=== PATIENT | male | born 1965 | race Caucasian/White ===

== ENCOUNTER 2020-10-14 19:57 | Inpatient (IN) | payer MEDICARE, SELFPAY ==
--- NOTE | ~2020-10-14 | XR_ITS ---
EXAMINATION: XR chest 2V DATE: 10/14/2020 21:00 INDICATION: Left chest pain. Shortness of breath. TECHNIQUE: Frontal and lateral views of the chest were obtained. COMPARISON: None. FINDINGS: There is mild atelectasis in left lower lung zone. No pleural effusion or pneumothorax. The heart size is normal. IMPRESSION: 1. Mild atelectasis in left lower lung zone. Reviewed, dictated and finalized at location A. BREAKER OPERATOR
[2020-10-14 20:02] VITALS: BP 132/79; PULSE 150; RESP 20; TEMP 37; O2SAT 100
--- NOTE | 2020-10-14 20:05 | ECG_ITS ---
Measurements Intervals [place] Rate: 144 P: ID: 0 QRS: 47 QRSD: 113 T: 40 QT: 332 QTc: 515 Interpretive Statements ATRIAL FLUTTER/TACHYCARDIA WITH RAPID VENTRICULAR RESPONSE MODERATE INTRAVENTRICULAR CONDUCTION DELAY MINIMAL Q WAVES- INFERIOR LEADS NONSPECIFIC T-WAVE ABNORMALITY- ANT/INF LEADS BASELINE WANDER- II, III, AVF ABNORMAL ECG Electronically Signed On 10-14-2020 20:18:10 COAT CHECKER by Moshe Sow D.O.
[2020-10-14 20:22] VITALS: BP 131/109; PULSE 122; RESP 22; TEMP 36.7; O2SAT 98
[2020-10-14 20:32] LABS: Basophils Percent Auto 0.2 % (0.2-1.2); Eosinophils Absolute Auto 0.2 K/mm3 (0-0.3); Eosinophils Percent Auto 2.3 % (0-4.4); Hematocrit 42.5 % (42.0-52.0); Hemoglobin 13.6 g/dL (14.0-18.0); Immature Granulocyte Absolute 0.04 K/mm3 (0.00-0.031); Immature Granulocyte Percent A 0.5 % (0-0.5); Lymphocytes Absolute Auto 1.94 K/mm3 (0.9-3.2); Mean Corpuscular Hemoglobin 28.8 pg (26-34); Mean Platelet Volume 9.6 fl (7.4-10.4); Monocytes Absolute Auto 0.8 K/mm3 (0.1-0.6); Monocytes Percent Auto 8.8 % (2.6-8.5); Neutrophils Absolute Auto 5.9 K/mm3 (1.3-6.7); Neutrophils Percent Auto 66.2 % (45.5-73.1); Platelet Count Result 313 k/mm3 (150-375); Red Blood Count 4.72 M/mm3 (4.6-6.20); Red Cell Distribution Width 13.2 % (11.5-14.5); White Blood Count 8.8 K/mm3 (4.5-10.0)
[2020-10-14] MEDS: ENOXAPARIN 120 MG/0.8 ML SYRINGE SUB-Q (20:34)
[2020-10-14] MEDS: LACTATED RINGERS 1,000 ML 999 ML IV CONT (20:34)
[2020-10-14] MEDS: dilTIAZem HCl INJ 25 MG/5 ML VIAL IV PUSH (20:34)
[2020-10-14 20:35] VITALS: PULSE 91; RESP 20; O2SAT 96
[2020-10-14 20:44] LABS: Anion Gap 7 mmol/L (8-16); Blood Urea Nitrogen 15 mg/dL (9-20); Calcium 9.2 mg/dL (8.4-10.2); Carbon Dioxide 30 mmol/L (22-30); Chloride 107 mmol/L (98-107); Estimated CRCL calculation 82 ml/min; Estimated Glomerular Filt Rate > 60; Glucose 115 mg/dL (75-110); Potassium 3.7 mmol/L (3.4-5.0); Sodium 144 mmol/L (137-145)
--- NOTE | 2020-10-14 20:45 | ED.SOB ---
HPI - SOB/Dyspnea General Chief Complaint: Shortness of Breath/Dyspnea Stated Complaint: sob, palpations Time Seen by Provider: 10/14/20 20:18 Source: patient Mode of arrival: ambulatory Limitations: no limitations History of Present Illness HPI Narrative: 55-year-old male Patient has been having palpitations for quite some time and has been seeing [facility] and [place] He is already had a pretty substantial work-up including Holter monitoring which showed him to be in atrial fibrillation or atrial flutter 12% of the time It looks like he was started on flecainide about 3 weeks ago 1 week ago he was noted to have a stable tachycardia with a rate of 150 and was begun on diltiazem 60 mg p.o. 3 times a day Effectively that seemed to have no effect according to the patient and he remained tachycardic Today along with the tachycardia he had some mild exertional dyspnea and opted to come over to the ER here to be checked when he could not reach his hand candle dipper over the phone He is not in acute distress and indeed appears to be in atrial flutter with a 145?heart rate Past medical history of note is hypothyroid and takes Synthroid MD elicited complaint: shortness of breath Related Data Allergies Allergy/AdvReac Type Severity Reaction Status Date / Time No Known Allergies Allergy Unverified 05/03/18 06:47 Review of Systems Review of Systems: All systems reviewed & are unremarkable except as noted in HPI and below Constitutional: Constitutional: Denies chills, Denies fatigue, Denies fever(s), Denies headache(s) and Reports weakness Eyes: Eyes: Reports no additional eye complaints and Denies change in vision ENT: Denies headache(s), Denies epistaxis, Denies nasal congestion and Denies sore throat Cardiovascular: Cardiovascular: Denies chest pain, Reports rapid heart rate, Denies leg edema, Denies palpitations and Denies dyspnea Respiratory: Respiratory: Denies cough, Reports dyspnea and Denies wheezing Gastrointestinal: Gastrointestinal: Denies abdominal pain, Denies diarrhea, Denies nausea and Denies vomiting Genitourinary: Genitourinary: Denies hematuria, Denies dysuria and Denies urinary frequency Musculoskeletal: Musculoskeletal: Denies deformity, Denies arthralgias, Denies joint swelling, Denies muscle weakness and Denies numbness Integumentary/Breasts: Skin/Breast: Denies rash and Denies wounds Neurologic: Denies headache(s), Denies focal weakness, Denies numbness and Denies weakness Psychiatric: Psychiatric: Reports no additional psychiatric complaints Endocrine: Endocrine: Denies fatigue and Denies palpitations Hematologic/Lymphatic: Hematologic/Lymphatic: Denies easy bleeding and Denies easy bruising Allergic/Immunologic: Allergic/Immunologic: Denies wheezing PMFSH Social History Social History Gender identity (if verbalized by the patient): Male Exam Const: General: no acute distress, well developed and awake Nutritional Appearance: well nourished and obese Orientation/consciousness: patient oriented x3 (alert) Limitations: no limitations HENMT: Head: normocephalic and atraumatic Ears: external ears normal General nose exam: No nasal discharge present and no epistaxis Face and sinus: face symmetric Eyes: Conjunctivae: conjunctivae normal Sclera: sclerae normal EOM: EOMs intact bilaterally Neck: Neck: normal visual inspection, supple and no JVD Chest: Chest palpation & inspection: deferred Resp: Effort & Inspection: normal respiratory effort Auscultation: clear to auscultation bilaterally, no rales, no rhonchi, no wheezes and other (BS =) Cardio: Rate: regular rate and tachycardic Rhythm: regular rhythm Heart sounds: no gallops and no murmurs GI: Inspection: normal to inspection GI Palp: Yes Soft to palpation and No Tenderness to palpation present (GI) : General: Yes no CVA tenderness Back/Spine/Pelvis: Back: no CVA tenderness Thoracic/Lumbar Spine: th
[2020-10-14 20:56] LABS: Troponin I < 0.012 ng/mL (0.000-0.034)
[2020-10-14] MEDS: dilTIAZem HCl INJ 25 MG/5 ML VIAL 35 MG IV PUSH (20:56)
[2020-10-14 21:10] VITALS: BP 135/101; PULSE 89
[2020-10-14] MEDS: FLECAINIDE ACETATE 100 MG TABLET PO (21:10)
[2020-10-14 22:18] LABS: Amphetamine Screen Urine Negative (Negative); Barbiturate Screen Urine Negative (Negative); Benzodiazepines Screen Urine Negative (Negative); Cannabinoid Screen Urine Negative (Negative); Cocaine Screen Urine Negative (Negative); Methadone Screen Urine Negative (Negative); Opiate Screen Urine Negative (Negative); Phencyclidine Screen Urine Negative (Negative)
[2020-10-14 22:45] LABS: Free T4 Free Thyroxine Reflex 1.27 ng/dL (0.78-2.19)
[2020-10-14 23:16] LABS: Troponin I < 0.012 ng/mL (0.000-0.034)
[2020-10-14 23:58] VITALS: BP 138/89; PULSE 89; RESP 18; O2SAT 98
[2020-10-15] VITALS (24 sets, daily range): BP systolic 102–149; BP diastolic 67–94; PULSE 104–148; RESP 16–20; TEMP 36.2–36.6; O2SAT 93–100; BMI 42.5
--- NOTE | 2020-10-15 00:17 | ADMGEN ---
This patient, Domo Quach, was admitted to IMU Room 202-. Patient/family oriented to hospital policies and general routines including ID bracelet, bed and alarms, visiting hours, pain management, procedures, bathroom and other care routines, personal items, smoking policy, room service/diet, and visiting hours. Information on how to activate the Rapid Response Team has been discussed. Patient/Family are encouraged to report perceived risks to care and to ask questions if they do not understand what they are told or what they should do.
[2020-10-15 00:18] LABS: Total Triiodothyronine (T3) 1.66 NG/ML (0.97-1.69)
--- NOTE | 2020-10-15 01:30 | PM.IMHP ---
H&P: HPI History of Present Illness Date/Time: 10/15/20 01:30 Chief Complaint: Palpitations. Narrative: This is a very pleasant 55-year-old male with paroxysmal atrial fibrillation, obstructive sleep apnea on CPAP, hyperlipidemia, hypothyroidism, and anxiety who presented to the emergency department earlier today via private vehicle from home with complaints of palpitations. He has had brief, intermittent fluttering episodes in his chest for many years and has worn Holter monitors on several occasions, most recently these episodes were captured and he was found to have paroxysmal atrial fibrillation and tachycardia. He has been seeing Dr. Irizarry with [facility] and was started on flecainide approximately 1 month ago which seemed to lessen the frequency of the palpitations. However last Monday evening simply while sitting down at home, he felt his heart racing and he has been experiencing a racing heart since that time. He was started on diltiazem last Monday but unfortunately that has not made any significant difference in his heart rate other than for about an hour or two after taking the pill. He has been trying to get a hold of the die grinder since that time to no avail and thus came in for evaluation today. EKG on arrival to the emergency department showed atrial flutter/tachycardia with rapid ventricular response with a rate of about 144 for which he was started on a Cardizem drip with some improvement in his rates into the 120s. He also has mild dyspnea with this but no other significant symptoms. Specifically he denies exertional chest pain, pleuritic pain, orthopnea, PND, and lower extremity edema. No nausea, vomiting, or sweats. He is compliant with his CPAP. He drinks decaffeinated beverages. No alcohol abuse. Review of Systems Review of Systems: Narrative: Twelve systems were reviewed with pertinent positives and negatives as per HPI. No syncope or near syncope. He denies fever, chills, and sweats. No recent cold or flu symptoms. No cough. The patient ambulates with a cane due to balance issues from idiopathic peripheral neuropathy. Except as documented, all other systems were reviewed and are negative. [facility] Past Medical History Medical History (Updated 10/15/20 @ 02:19 by Dixie Rod PA-C) Anxiety Depression Gastroesophageal reflux disease Hyperlipidemia Hypothyroidism Idiopathic peripheral neuropathy Irritable bowel syndrome Obstructive sleep apnea on CPAP Paroxysmal atrial fibrillation Surgical History Surgical History (Updated 10/15/20 @ 02:19 by Dixie Rod PA-C) History of arthroscopy of left knee History of left inguinal hernia repair History of tonsillectomy Family History Family History (Updated 10/15/20 @ 02:20 by Dixie Rod PA-C) Father Lung cancer Mother Hypertension Congestive heart failure Sibling Acute myocardial infarction Diabetes mellitus Sibling Chronic obstructive pulmonary disease Social History Social History (Updated 10/15/20 @ 02:20 by Dixie Rod PA-C) Social History: Surrogate decision maker: Opal Boateng, . Code status: Full code. Smoking status: Never smoker Second hand tobacco smoke exposure: No Alcohol intake: never Substance use: never Additional living arrangements comments: The patient lives with his in [place]. They have 2 children. Additional occupation/education comments: On disability. 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 Gender identity (if verbalized by the patient): Male Spiritual care concerns: No Meds Home Medications and Allergies Home Medications Medication Instructions Recorded Confirmed Type aspirin [Adult Low Dose Aspirin] 81 mg PO DAILY 10/15/20 10/15/20 History atorvastatin 40 mg PO DAILY 10/15/20 10/15/20 History buspirone 10 mg PO TID 10/15/20 10/15/20 History clonazepam 0.5 mg PO TID 10/15/20 10/15/20 History diltiazem HCl
--- NOTE | 2020-10-15 02:04 | PCRCNOTE ---
PT WEARS CPAP AT HOME. HE WAS OFFERED A HOSPITAL MACHINE BUT REFUSED STATING THAT HE WAS HOPING TO GO HOME TOMORROW. PT WAS GIVEN THE OPTION TO CALL AT ANYTIME SHOULD HE CHANGE HIS MIND OR TO BRING IN HIS OWN CPAP MACHINE AND/OR MASK SHOULD HE NEED TO STAY LONGER THAN EXPECTED.
[2020-10-15 02:37] LABS: Troponin I < 0.012 ng/mL (0.000-0.034)
[2020-10-15 05:16] LABS: Alanine Aminotransferase 14 U/L (4-50); Albumin Level 3.5 g/dL (3.5-5.1); Alkaline Phosphatase 54 U/L (38-126); Anion Gap 4 mmol/L (8-16); Aspartate Amino Transferase 18 U/L (17-59); Bilirubin,Total 0.3 mg/dL (0.2-1.3); Blood Urea Nitrogen 15 mg/dL (9-20); Calcium 8.3 mg/dL (8.4-10.2); Carbon Dioxide 34 mmol/L (22-30); Chloride 105 mmol/L (98-107); Cholesterol 96 mg/dL (0-200); Estimated CRCL calculation 81 ml/min; Estimated Glomerular Filt Rate > 60; Glucose 102 mg/dL (75-110); HDL Direct 27 mg/dL; Potassium 3.6 mmol/L (3.4-5.0); Sodium 143 mmol/L (137-145); Triglycerides 91 mg/dL (<150)
[2020-10-15 05:27] LABS: LDL Cholesterol Direct 55 mg/dL
[2020-10-15] MEDS: LEVOTHYROXINE SODIUM 150 MCG TABLET PO (06:01)
[2020-10-15] MEDS: ASPIRIN 81 MG CHEWABLE TABLET PO (07:54)
[2020-10-15] MEDS: MAGNESIUM OXIDE 400 MG TABLET PO ×2 (07:54→21:46)
[2020-10-15] MEDS: PANTOPRAZOLE 40 MG TABLET PO (07:54)
[2020-10-15] MEDS: ATORVASTATIN 40 MG TABLET PO (07:54)
[2020-10-15] MEDS: busPIRone HCL 10 MG TABLET PO ×3 (07:54→21:46)
[2020-10-15] MEDS: GABAPENTIN 300 MG CAPSULE PO ×3 (07:55→21:46)
[2020-10-15] MEDS: FLECAINIDE ACETATE 100 MG TABLET PO ×2 (07:55→22:02)
[2020-10-15] MEDS: clonazePAM (*CRX) 0.5 MG TABLET PO ×3 (07:55→21:46)
[2020-10-15] MEDS: ENOXAPARIN 120 MG/0.8 ML SYRINGE SUB-Q (07:55)
--- NOTE | 2020-10-15 13:22 | PM.IMPN ---
Progress Note: A&P Assessment and Plan (1) Atrial flutter with rapid ventricular response: Code(s): I48.92 - Unspecified atrial flutter Status: Acute Assessment and Plan: Patient still appears to be in a flutter with RVR. On therapeutic lovenox since arrival to ED. Still on diltiazem. Cardiology consulted and appreciate recommendations. Per nursing, patient may have DARIUSZ in am Continue diltizem for now Home flecainide continues Continue therapeutic Lovenox Monitor Await further recommendations from Cardiology (2) Paroxysmal atrial fibrillation: Code(s): I48.0 - Paroxysmal atrial fibrillation Status: Acute Assessment and Plan: Please see above a/p (3) Obstructive sleep apnea on CPAP: Code(s): G47.33 - Obstructive sleep apnea (adult) (pediatric); Z99.89 - Dependence on other enabling machines and devices Status: Acute Assessment and Plan: Will do CPAP tonight (4) Hyperlipidemia: Code(s): E78.5 - Hyperlipidemia, unspecified Status: Acute Assessment and Plan: Continue statin and fish oil (5) Hypothyroidism: Code(s): E03.9 - Hypothyroidism, unspecified Status: Acute Assessment and Plan: TSH low, with normal free T4, total T3 Continue home levothyroxine (6) Anxiety: Code(s): F41.9 - Anxiety disorder, unspecified Status: Acute Assessment and Plan: Escitalopram on hold given he is on flecained and has prolonged QTc interval Subjective Date/time seen: 10/15/20 13:22 Interval history: Patient is a 55 yo M with paroxysmal atrial fibrillation, obstructive sleep apnea on CPAP, hyperlipidemia, hypothyroidism, and anxiety who is seen in follow up for atrial flutter with RVR. Patient states he feels similar to what he has been the past week when symptoms started; still racing heart rate, occasional chest pressure, and WADE. He has no other complaints at the moment. Denies f/c/s, recent infections, headaches, dizziness, lightheadedness, changes in v/h, cough, n/v/d/c, abd pain, changes in BMs, dysuria, hematuria, cloudy urine, calf pain/swelling. Review of Systems Review of Systems: All systems reviewed & are unremarkable except as noted in HPI and below Exam Narrative: Exam Narrative: General: Patient initially sleeping on left side in bed in no acute distress. Easily arousable to verbal stimuli, sits up on side of bed with ease. Family in room at time of visit. HEENT: Normocephalic, EOMI, oral mucosa moist. Cardiovascular: tachycardic, s1-s2 noted, No notable murmur, rub, or gallop. Tele shows apparent a. flutter with RVR in 130s-140s at time of visit Respiratory: Lungs clear to auscultation all baez. Non-labored breathing. Abdomen: Soft, obese, non-tender, non-distended, bowel sounds present. Extremities: Peripheral pulses intact. No edema. NTTP b/l calves Neuro: No focal neurological deficits. Speech is clear. Objective Data Vital Signs Vital Signs: Last Vital Signs Temp 97.2 F L 10/15/20 12:00 Pulse 112 H 10/15/20 12:00 Resp 20 10/15/20 12:00 BP 109/67 10/15/20 12:00 Pulse Ox 97 10/15/20 12:00 Intake/Output Intake/Output: Intake & Output 10/12/20 10/13/20 10/14/20 10/15/20 23:59 23:59 23:59 23:59 Intake Total 1000 640 Balance 1000 640 Meds/Results Medications: Active Medications Generic Name Dose Route Start Last Admin Trade Name Freq PRN Reason Stop Dose Admin Acetaminophen 650 mg 10/14/20 21:10 Acetaminophen 325 Mg Tablet PO Q4H PRN Mild Pain (1-3) or Fever Aspirin 81 mg 10/15/20 08:00 10/15/20 07:54 Aspirin 81 Mg Chewable Tablet PO 81 mg DAILY@0800 EDU Administration Atorvastatin Calcium 40 mg 10/15/20 09:00 10/15/20 07:54 Atorvastatin 40
[2020-10-15] MEDS: OMEGA 3 POLYUNSAT FATTY ACIDS 1 GM CAP PO (13:26)
--- NOTE | 2020-10-15 15:48 | PM.CNCAR ---
Assessment and Plan Assessment and plan (1) Atrial flutter with rapid ventricular response: Code(s): I48.92 - Unspecified atrial flutter Status: Acute Assessment and Plan: Refractory to medical therapy including diltiazem and flecainide, symptomatic with rapid ventricular response. Extensive review telemetry clearly demonstrates underlying atrial flutter during periods of intermittent AV block. Therefore, his present tachycardia is not consistent with atrial tachycardia. This was discussed in detail particular with regards to the arrhythmias associated with embolic stroke risk including atrial fibrillation and atrial flutter. He was given therapeutic Lovenox this morning. Given persistence of his tachyarrhythmia will continue systemic anticoagulation, keep NPO after midnight for transesophageal echocardiogram guided elective electrical cardioversion in a.m.. Continue current medical therapy for now. Discontinue IV diltiazem, resume oral diltiazem. Will plan to discharge on oral anticoagulation for a minimum of 30 days. CHADS2 Vasc score 0, as such, aspirin is acceptable but only after anticoagulation for least 1 month post cardioversion. Would recommend referral to electrophysiology (alternative per patient as he wishes to transfer care to our practice after discharge) for ablation of atrial flutter. 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 Potassium and magnesium levels stable. Patient is not in decompensated heart failure at this time. Plan for Eliquis 5 mg b.i.d. x1 month. Start this evening, discontinue enoxaparin. Counseled patient on embolic stroke risk versus bleeding risk with anticoagulation for atrial flutter. DARIUSZ guidance to exclude intracardiac thrombus necessary given 7 days of persistent atrial flutter without anticoagulation. Risks, benefits, and alternatives discussed in detail with regards to sedation. Patient states he has never had a problem as I expressed given his history of sleep apnea this may increase risk for respiratory compromise and/or the inability to more deeply sedate for comfort. Patient and understand this states they are comfortable with proceeding as discussed above. Patient must receive Eliquis in a.m. prior to cardioversion. Initiate metoprolol tartrate 25 mg b.i.d. first dose this evening as alternative to diltiazem. I spent 72 minutes in the care of this patient at bedside, discussion of risks related to DARIUSZ/CV, atrial flutter, stroke risk, medical management, sedation, as well as chart review. (2) Obstructive sleep apnea on CPAP: Code(s): G47.33 - Obstructive sleep apnea (adult) (pediatric); Z99.89 - Dependence on other enabling machines and devices Status: Acute Assessment and Plan: Compliance with CPAP. (3) Morbid obesity with BMI of 40.0-44.9, adult: Code(s): E66.01 - Morbid (severe) obesity due to excess calories; Z68.41 - Body mass index [BMI]40.0-44.9, adult Status: Acute Assessment and Plan: Lifestyle modification counseling. Continue PPI. (4) Hypothyroidism: Code(s): E03.9 - Hypothyroidism, unspecified Status: Acute Assessment and Plan: TSH mildly low at 0.180, not likely significant contributor to tachyarrhythmias but should be addressed. Defer to primary service for management. History of Present Illness History of Present Illness Consult date/time: Date of service: 10/15/20 15:48 Cardiology consultation at the request of Dixie Rod of the [facility] service for our opinion regarding atrial flutter with rapid ventricular response Requesting physician: Dixie Rod, PALalithaC Consult reason: atrial fibrillation (Atrial flutter with rapid ventricular response) Reason For Visit: atrial flutter Narrative: Patient i
[2020-10-15] MEDS: APIXABAN 5 MG TABLET PO (21:47)
[2020-10-15] MEDS: METOPROLOL TARTRATE 25 MG TABLET PO (21:47)
[2020-10-16] VITALS (29 sets, daily range): BP systolic 87–118; BP diastolic 66–100; PULSE 75–138; RESP 14–23; TEMP 35.7–36.6; O2SAT 92–100
--- NOTE | 2020-10-16 | ECG_ITS ---
Measurements Intervals [place] Rate: 128 P: [place]: 0 QRS: 46 QRSD: 98 T: 29 QT: 382 QTc: 558 Interpretive Statements ATRIAL FLUTTER/TACHYCARDIA WITH RAPID VENTRICULAR RESPONSE CONSDIER INFERIOR INFARCT, AGE INDETERMINATE BORDERLINE T WAVE ABNORMALITY- HIGH LATERAL LEADS BASELINE ARTIFACT- V3 ABNORMAL ECG Electronically Signed On 10-16-2020 15:34:06 LAB ANALYST by Moshe Sow D.O.
[2020-10-16 05:13] LABS: Potassium 4.1 mmol/L (3.4-5.0)
[2020-10-16 05:15] LABS: Anion Gap 4 mmol/L (8-16); Blood Urea Nitrogen 14 mg/dL (9-20); Calcium 8.7 mg/dL (8.4-10.2); Carbon Dioxide 33 mmol/L (22-30); Chloride 104 mmol/L (98-107); Estimated CRCL calculation 88 ml/min; Estimated Glomerular Filt Rate > 60; Glucose 98 mg/dL (75-110); Magnesium 2.1 mg/dL (1.6-2.3); Sodium 141 mmol/L (137-145)
[2020-10-16] MEDS: LEVOTHYROXINE SODIUM 150 MCG TABLET PO (06:11)
[2020-10-16] MEDS: FLECAINIDE ACETATE 100 MG TABLET PO (08:45)
[2020-10-16] MEDS: APIXABAN 5 MG TABLET PO (08:45)
[2020-10-16] MEDS: GABAPENTIN 300 MG CAPSULE PO ×2 (08:45→14:29)
[2020-10-16] MEDS: busPIRone HCL 10 MG TABLET PO ×2 (08:45→14:30)
[2020-10-16] MEDS: METOPROLOL TARTRATE 25 MG TABLET PO (08:46)
[2020-10-16] MEDS: ATORVASTATIN 40 MG TABLET PO (08:46)
[2020-10-16] MEDS: OMEGA 3 POLYUNSAT FATTY ACIDS 1 GM CAP PO (08:46)
[2020-10-16] MEDS: PANTOPRAZOLE 40 MG TABLET PO (08:46)
[2020-10-16] MEDS: clonazePAM (*CRX) 0.5 MG TABLET PO ×2 (08:50→14:29)
[2020-10-16] MEDS: ASPIRIN 81 MG CHEWABLE TABLET PO (08:50)
--- NOTE | 2020-10-16 09:49 | PM.IMPN ---
Progress Note: A&P Assessment and Plan (1) Atrial flutter with rapid ventricular response: Code(s): I48.92 - Unspecified atrial flutter Status: Acute Assessment and Plan: Patient still appears to be in a flutter with RVR. Transitioned to Eliquis and metoprolol on 10/16 per Cardiology. Diltiazem d/c. Plans for DARIUSZ and possible cardioversion today per Dr. Spivey. Continue metoprolol per Cardiology rec Continue Eliquis per Cardiology rec; CC consult for pricing. Home flecainide continues Monitor Await further recommendations from Cardiology (2) Paroxysmal atrial fibrillation: Code(s): I48.0 - Paroxysmal atrial fibrillation Status: Acute Assessment and Plan: Please see above a/p (3) Obstructive sleep apnea on CPAP: Code(s): G47.33 - Obstructive sleep apnea (adult) (pediatric); Z99.89 - Dependence on other enabling machines and devices Status: Acute Assessment and Plan: Will continue CPAP (4) Hyperlipidemia: Code(s): E78.5 - Hyperlipidemia, unspecified Status: Acute Assessment and Plan: Continue statin and fish oil (5) Hypothyroidism: Code(s): E03.9 - Hypothyroidism, unspecified Status: Acute Assessment and Plan: TSH low, with normal free T4, total T3 Continue home levothyroxine (6) Anxiety: Code(s): F41.9 - Anxiety disorder, unspecified Status: Acute Assessment and Plan: Escitalopram on hold given he is on flecained and has prolonged QTc interval Subjective Date/time seen: 10/16/20 09:49 Interval history: Patient is a 55 yo M with paroxysmal atrial fibrillation, obstructive sleep apnea on CPAP, hyperlipidemia, hypothyroidism, and anxiety who is seen in follow up for atrial flutter with RVR. Patient states he feels about the same as yesterday; still racing heart rate. Little WADE. No cp today. He has no other complaints at the moment. Denies f/c/s, headaches, dizziness, lightheadedness, changes in v/h, cough, n/v/d/c, abd pain, changes in BMs, dysuria, hematuria, cloudy urine, calf pain/swelling, s/sx of stroke Review of Systems Review of Systems: All systems reviewed & are unremarkable except as noted in HPI and below Exam Narrative: Exam Narrative: General: Patient sitting upright in chair in no acute distress. HEENT: Normocephalic, EOMI, oral mucosa moist. Cardiovascular: tachycardic, s1-s2 noted, No notable murmur, rub, or gallop. Tele shows apparent a. flutter with RVR in 110s-120s at time of visit Respiratory: Lungs clear to auscultation all baez. Non-labored breathing. Abdomen: Soft, obese, non-tender, non-distended, bowel sounds present. Extremities: Peripheral pulses intact. No edema. NTTP b/l calves Neuro: No focal neurological deficits. Speech is clear. Objective Data Vital Signs Vital Signs: Last Vital Signs Temp 96.2 F L 10/16/20 08:00 Pulse 138 H 10/16/20 08:00 Resp 18 10/16/20 08:00 BP 117/91 H 10/16/20 08:00 Pulse Ox 96 10/16/20 08:00 Intake/Output Intake/Output: Intake & Output 10/13/20 10/14/20 10/15/20 10/16/20 23:59 23:59 23:59 23:59 Intake Total 1000 2075 Balance 1000 2074 Meds/Results Medications: Active Medications Generic Name Dose Route Start Last Admin Trade Name Freq PRN Reason Stop Dose Admin Acetaminophen 650 mg 10/14/20 21:10 Acetaminophen 325 Mg Tablet PO Q4H PRN Mild Pain (1-3) or Fever Apixaban 5 mg 10/15/20 21:00 10/16/20 08:45 Apixaban 5 Mg Tablet PO 5 mg Q12HR EDU Administration Aspirin 81 mg 10/15/20 08:00 10/16/20 08:50 Aspirin 81 Mg Chewable Tablet PO 81 mg DAILY@0800 EDU Administration Atorvastatin Calcium 40 mg 10/15/20 09:00 10/16/20 08:46 Atorvastatin 40 Mg Tablet PO 40 mg
--- NOTE | 2020-10-16 10:45 | WPDMODSED ---
Moderate Sedation Note-Pt Data Patient Data Diagnosis: Persistent atrial flutter with rapid ventricular response Present Complaint: Palpitations Procedure to be performed/Plan: Transesophageal echocardiogram guided elective electrical cardioversion Allergies Allergy/AdvReac Type Severity Reaction Status Date / Time No Known Allergies Allergy Unverified 05/03/18 06:47 Home Medications Medication Instructions Recorded Confirmed Type aspirin [Adult Low Dose Aspirin] 81 mg PO DAILY 10/15/20 10/15/20 History atorvastatin 40 mg PO DAILY 10/15/20 10/15/20 History buspirone 10 mg PO TID 10/15/20 10/15/20 History clonazepam 0.5 mg PO TID 10/15/20 10/15/20 History diltiazem HCl [Cardizem] 60 mg PO TID 10/15/20 10/15/20 History escitalopram oxalate [Lexapro] 20 mg PO DAILY 10/15/20 10/15/20 History flecainide 100 mg PO BID 10/15/20 10/15/20 History gabapentin 300 mg PO TID 10/15/20 10/15/20 History levothyroxine 150 mcg PO DAILY 10/15/20 10/15/20 History loperamide 2 mg PO QID PRN 10/15/20 10/15/20 History magnesium 400 mg PO BID 10/15/20 10/15/20 History omega 5-qxq-mne-fish oil [Litt[place]arr 3 1,400 cap PO DAILY 10/15/20 10/15/20 History Fish Oil] pantoprazole 40 mg PO DAILY 10/15/20 10/15/20 History simethicone [Gas-X] 80 mg PO DAILY PRN 10/15/20 10/15/20 History vitamin B complex [B 1,000 tablet PO DAILY 10/15/20 10/15/20 History Complex-Vitamin B12] Current Medications: Active Medications Acetaminophen (Acetaminophen 325 Mg Tablet) 650 mg PO Q4H PRN PRN Reason: Mild Pain (1-3) or Fever Apixaban (Apixaban 5 Mg Tablet) 5 mg PO Q12HR [facility] Last Admin: 10/16/20 08:45 Dose: 5 mg Documented by: Aspirin (Aspirin 81 Mg Chewable Tablet) 81 mg PO DAILY@0800 [facility] Last Admin: 10/16/20 08:50 Dose: 81 mg Documented by: Atorvastatin Calcium (Atorvastatin 40 Mg Tablet) 40 mg PO DAILY [facility] Last Admin: 10/16/20 08:46 Dose: 40 mg Documented by: Buspirone HCl (Buspirone Hcl 10 Mg Tablet) 10 mg PO TID [facility] Last Admin: 10/16/20 08:45 Dose: 10 mg Documented by: Clonazepam (Clonazepam (*Crx) 0.5 Mg Tablet) 0.5 mg PO TID [facility] Last Admin: 10/16/20 08:50 Dose: 0.5 mg Documented by: Fish Oil (Littcarr 3 Polyunsat Fatty Acids 1 Gm Cap) 1 gm PO DAILY [facility] Stop: 11/14/20 09:01 Last Admin: 10/16/20 08:46 Dose: 1 gm Documented by: Flecainide Acetate (Flecainide Acetate 100 Mg Tablet) 100 mg PO Q12HR [facility] Last Admin: 10/16/20 08:45 Dose: 100 mg Documented by: Gabapentin (Gabapentin 300 Mg Capsule) 300 mg PO TID [facility] Last Admin: 10/16/20 08:45 Dose: 300 mg Documented by: Levothyroxine Sodium (Levothyroxine Sodium 150 Mcg Tablet) 150 mcg PO DAILY@0630 [facility] Last Admin: 10/16/20 06:11 Dose: 150 mcg Documented by: Loperamide HCl (Loperamide Hcl 2 Mg Capsule) 2 mg PO QID PRN PRN Reason: IBS Magnesium Oxide (Magnesium Oxide 400 Mg Tablet) 400 mg PO BID [facility] Last Admin: 10/15/20 21:46 Dose: 400 mg Documented by: Metoprolol Tartrate (Metoprolol Tartrate 25 Mg Tablet) 25 mg PO Q12HR [facility] Last Admin: 10/16/20 08:46 Dose: 25 mg Documented by: Pantoprazole Sodium (Pantoprazole 40 Mg Tablet) 40 mg PO DAILY [facility] Last Admin: 10/16/20 08:46 Dose: 40 mg Documented by: Simethicone (Simethicone 80 Mg Tab.Chew) 80 mg PO DAILY PRN PRN Reason: Abdominal Discomfort Vitamin B Complex (Vitamin B Complex Capsule) 1 cap PO QAM [facility] Sedation/Anesthesia: No previous sedation/anesthesia problems (including family history). [facility] Past Medical History Medical History Anxiety Depression Gastroesophageal reflux disease Hyperlipidemia Hypothyroidism Idiopathic peripheral neuropathy Irritable bowel syndrome Obstructive sleep apnea on CPAP Paroxysmal atrial fibrillation Surgical History Surgical History History of arthroscopy of left knee History of left inguinal hernia repair History of tonsillectomy Family History F
--- NOTE | 2020-10-16 11:39 | ECG_ITS ---
Measurements Intervals [place] Rate: 73 P: 41 MI: 293 QRS: 40 QRSD: 92 T: 33 QT: 391 QTc: 432 Interpretive Statements SINUS RHYTHM WITH FIRST DEGREE AV BLOCK POSSIBLE LEFT ATRIAL ENLARGEMENT MINIMAL Q WAVES- INFERIOR LEADS ABNORMAL ECG Electronically Signed On 10-16-2020 14:42:50 [employer]NER INTEGRATION PLANNER by Moshe Sow D.O.
--- NOTE | 2020-10-16 11:43 | WPDTECDV ---
DARIUSZ with Cardioversion Date of procedure: 10/16/20 Procedure Type: Transesophageal echocardiogram guided elective electrical cardioversion Diagnosis: Atrial flutter with rapid ventricular response Indications: Atrial flutter with rapid ventricular response Description of Procedure: Brief history present illness: Patient is a pleasant 55-year-old male with a past medical history significant for palpitations and atrial flutter with rapid ventricular response persistent for greater than 1 week symptomatic with shortness of breath, palpitations who presented for further evaluation. He has been maintained on flecainide and diltiazem with refractory tachyarrhythmia despite this regimen. He was started on systemic anticoagulation prior to cardioversion but transesophageal echocardiographic guidance advised to exclude intracardiac thrombus. Procedure in detail: After verbal and written informed consent was obtained the patient risks, benefits, and alternatives explained in detail the patient agreed to proceed with the plan of care as outlined above. Patient was evaluated at bedside in the [facility] procedure room. On examination, neck was supple with normal range of motion, no restrictions to opening of the oral cavity, jaw angle and posterior hypopharynx was clear. Lungs were clear to auscultation. Patient was placed in appropriate 30 to 45 degree angle in a supine, slight left lateral decubitus position. Patient was monitored throughout the study with telemetry, oxygen saturation, end-tidal CO2 monitoring, blood pressure, heart rate, and respirations. Anterior and posterior defibrillator pads placed in the appropriate positions. The posterior hypopharynx was then locally anesthetized using repeated administration of Hurricaine spray as well as gargled viscous lidocaine. After local anesthetic of the posterior hypopharynx was achieved and the oral bite block placed, moderate sedation was administered. Through the oral bite block, the transesophageal echocardiogram probe was advanced into the posterior hypopharynx and into the esophagus easily and without complication. Multiple, multiplanar echocardiographic images were obtained in multiple standard re-projections. Pulsed wave, continuous-wave, and color-flow Doppler were utilized in conjunction with this study. At the conclusion of the study, the transesophageal echocardiogram probe was removed easily and without complication. Patient tolerated the procedure well without difficulty. Patient was in atrial fibrillation throughout the study. Sedation: Moderate Sedation/Anesthesia administration: Patient denied previous intolerance or complications with anesthesia/sedation. Please see sedation note for documentation of the pre-procedure physical examination. As noted above, after adequate local anesthesia of the posterior hypopharynx was achieved, a total of 6.5mg of intravenous Versed and a total of 200mcg intravenous Fentanyl in multiple divided doses was utilized for moderate sedation. Sedation start time was 1053 and end time was 1139 for a total of 46 minutes [id number] intra-procedure time. Sedation was administered by a qualified observer Cecille Gamble RN under my supervision with intra-procedure [id number] observation and management throughout the entirety of the procedure. There were no other issues or complications and patient tolerated the procedure well and sedation protocol well and I was present for the entirety. Findings: Findings: Left ventricular and right ventricular size and systolic function within normal limits with visually estimated left ventricular ejection fraction of 55-60% without wall motion abnormality. Mild concentric left ventricular hypertrophy noted. Mild left enlargement with preserved right atrial size noted. Interatrial septum anatomically normal without evidence of shunt with color-flow Doppler nor with injection of agitated saline. Mitral and tricuspid va
--- NOTE | 2020-10-16 13:22 | SUR.OPER ---
Please see moderate sedation sheet for all medications administered during procedure.
--- NOTE | 2020-10-16 14:18 | SUR.PHASEII ---
[id number]- Report called to and received by Sadie NARANJO following DARIUSZ/CV. Patient A & O x 4, denies pain, VSS stable at time of transfer. Patient returned to IMU room 202 via wheelchair with staff assistance. Patient verbalizes understanding of plan of care.
--- NOTE | 2020-10-16 14:22 | PM.DS ---
DS: Admitting Diagnosis Admitting Diagnosis Admitting Diagnosis: a flutter with RVR DS: Discharge Diagnosis Discharge Diagnosis (1) Atrial flutter with rapid ventricular response: Code(s): I48.92 - Unspecified atrial flutter Status: Acute Assessment and Plan: Patient here for atrial flutter with RVR s/p DARIUSZ with cardioversion today per Dr. Spivey; okay for discharge from cardiology standpoint. Transitioned to Eliquis and metoprolol on 10/16 per Cardiology. Diltiazem d/c. Continue Metoprolol per Cardiology Continue Eliquis per Cardiology; appears for at least for 30 days Home flecainide continues d/c today F/u with Cardiology per their recommendations (2) Paroxysmal atrial fibrillation: Code(s): I48.0 - Paroxysmal atrial fibrillation Status: Acute Assessment and Plan: Please see above a/p (3) Obstructive sleep apnea on CPAP: Code(s): G47.33 - Obstructive sleep apnea (adult) (pediatric); Z99.89 - Dependence on other enabling machines and devices Status: Acute Assessment and Plan: Will continue CPAP (4) Hyperlipidemia: Code(s): E78.5 - Hyperlipidemia, unspecified Status: Acute Assessment and Plan: Continue statin and fish oil (5) Hypothyroidism: Code(s): E03.9 - Hypothyroidism, unspecified Status: Acute Assessment and Plan: TSH low, with normal free T4, total T3 Continue home levothyroxine (6) Anxiety: Code(s): F41.9 - Anxiety disorder, unspecified Status: Acute Assessment and Plan: Escitalopram on hold given that he is on flecainide and has prolonged QTc interval Will d/c at discharge and have patient follow up with PCP. Discussed in detail with patient and DS: Summary Hospital Course Reason for hospitalization: A. flutter with RVR Hospital Course: Date of arrival: 10/14/20 Date of discharge: 10/15/20 Patient is a 55-year-old male with paroxysmal atrial fibrillation, obstructive sleep apnea on CPAP, hyperlipidemia, hypothyroidism, and anxiety who presented to the emergency department earlier today via private vehicle from home with complaints of palpitations and racing heart for roughly 1 week. While in the ED, he was found to be in a. flutter with RVR with rate at 144. He was placed on cardizem drip and placed on therapeutic lovenox. Dr. Spivey (cardiology) was consulted for further management. Patient had been following Dr. Irizarry with [facility]. Patient admitted under this setting of a flutter with RVR. Please see H&P for further details. Patient was admitted to the hospitalist service for further management/treatment. Patient continued on cardizem drip after admission and was transitioned to PO metoprolol and his home diltizem was discontinued. His flecainide was continued. He was transitioned to PO eliquis on 10/15. He underwent DARIUSZ on 10/16 without evidence of thrombus; normal EF was noted of 55-60%. Subsequent cardioversion was successfully performed with return of NSR. Plan was for patient to continue on Eliquis for at least 30 days. She was to continue metoprolol 25 mg Q12hr; diltizem and aspirin were discontinued. His Lexapro was discontinued as he was on flecainide and was found to have prolong QTc on admission. Patient wished [facility] transition [facility]. Plan was for patient to follow up with Cardiology on 11/16. He was to follow up with his PCP as well. Patient agreeable and comfortable with plan for discharge. Patient hemodynamically stable and in improved condition for discharge on 10/16 Status at Discharge Overall status at discharge: patient is progressing back to baseline Time Spent with Patient
[2020-10-16] MEDS: VITAMIN B COMPLEX CAPSULE 1 CAP PO (14:29)
[2020-10-16] MEDS: MAGNESIUM OXIDE 400 MG TABLET PO (14:29)
== END 2020-10-16 16:30 | disposition home or self-care (01) | DRG 309 ==
LOC: ANHED 21:22 → ANHIMU 23:42
PROVIDERS: Emergency Medicine; Internal Medicine Cardiovascular Disease; Physician Assistant; Admitting Provider Family Medicine; Emergency Provider Emergency Medicine; PCP Internal Medicine; Visit Provider Physician Assistant
PROC: B24BZZ4 Ultrasonography of Heart with Aorta, Transesophageal (ICD-10-PCS; CPT 93312; principal; 2020-10-16 10:30)
PROC: 5A2204Z Restoration of Cardiac Rhythm, Single (ICD-10-PCS; 2020-10-16 10:30)
DX: I48.92 Unspecified atrial flutter (principal); Z68.41 Body mass index [BMI] 40.0-44.9, adult; E66.01 Morbid (severe) obesity due to excess calories; I48.0 Paroxysmal atrial fibrillation; I34.0 Nonrheumatic mitral (valve) insufficiency; G47.33 Obstructive sleep apnea (adult) (pediatric); E78.5 Hyperlipidemia, unspecified; E03.9 Hypothyroidism, unspecified; F41.9 Anxiety disorder, unspecified; K21.9 Gastro-esophageal reflux disease without esophagitis; G60.9 Hereditary and idiopathic neuropathy, unspecified; Z28.21 Immunization not carried out because of patient refusal; Z79.899 Other long term (current) drug therapy; Z99.89 Dependence on other enabling machines and devices
CPT/HCPCS: 36415; 71046; 80048; 80053; 80061; 80307; 83735; 84439; 84443; 84480; 84484; 85025; 92960; 93005; 93312; 93320; 93325; 96361; 96372; 96374; 99285; A9270; J1650; J2250; J3010; J7040; J7120

== ENCOUNTER 2020-10-20 10:43 | Outpatient (CLI) | payer MEDICARE, SELFPAY ==
--- NOTE | ~2020-10-20 | XR_ITS ---
EXAMINATION: XR chest 2V DATE: 10/20/2020 11:03 INDICATION: Shortness of breath. TECHNIQUE: Frontal and lateral views of the chest were obtained. COMPARISON: Chest 2 views 10/14/2020 FINDINGS: The chest demonstrates clear lungs without pneumonia, pleural effusion, or pneumothorax. Th e heart size is normal. IMPRESSION: 1. No acute cardiopulmonary disease. Reviewed, dictated and finalized at location A.
== END 2020-10-20 10:44 | disposition home or self-care (01) ==
LOC: ANHIMG 10:50
PROVIDERS: PCP Internal Medicine; Visit Provider Internal Medicine Cardiovascular Disease
DX: R06.02 Shortness of breath (principal)
CPT/HCPCS: 71046

== ENCOUNTER 2021-06-27 18:58 | Emergency (ER) | payer MEDICARE, SELFPAY ==
--- NOTE | ~2021-06-27 | CT_ITS ---
EXAMINATION: CT abdomen pelvis w con DATE: 06/27/2021 23:09 INDICATION: Abdominal pain. TECHNIQUE: Computed tomography (CT) of the abdomen and pelvis was performed with 100 mL Omnipaque 350 intravenous contrast. Automated exposure control and iterative reconstruction technique were employe d. The dose-length product was 1427.20 mGy-cm. COMPARISON: None. FINDINGS: The visualized portions of the lung bases demonstrate mild atelectasis. No pleural effusion . The heart size is normal. No pericardial effusion. The liver, gallbladder, spleen, pancreas, adrena l glands, and left kidney are normal. There is a delayed right-sided contrast nephrogram. There is as ymmetric edema around right kidney. There is mild right hydronephrosis and hydroureter. There is a 2 mm stone in distal right ureter. There is a left-sided inguinal hernia containing fat. There is diver ticulosis of the colon without evidence of diverticulitis. The appendix is normal. There are no patho logically enlarged lymph nodes. There is no free intraperitoneal fluid. There is a small supraumbilic al ventral hernia containing fat. There is mild thoracolumbar spondylosis. IMPRESSION: 1. 2 mm stone in distal right ureter with mild right hydronephrosis and hydroureter. 2. Supraumbilical ventral hernia and left inguinal hernia containing fat. Reviewed, dictated and finalized at location A. CONVEYOR TENDER IMPRESSION: 1. 2 mm stone in distal right ureter with mild right hydronephrosis and hydrour eter. 2. Supraumbilical ventral hernia and left inguinal hernia containing fat.
--- NOTE | ~2021-06-27 | XR_ITS ---
EXAMINATION: XR abdomen/kub 1V DATE: 06/27/2021 23:20 INDICATION: Kidney stone. TECHNIQUE: A supine view of the abdomen on 2 radiographs was obtained. COMPARISON: CT abdomen and pelvis 06/27/2021 FINDINGS: There are no dilated loops of bowel. There is a delayed right-sided contrast nephrogram. IMPRESSION: 1. Delayed right-sided contrast nephrogram, consistent with ureteral obstruction from the stone seen by CT. Reviewed, dictated and finalized at location A. TER DISH CARRIER IMPRESSION: 1. Delayed right-sided contrast nephrogram, consistent with ureteral obstructio n from the stone seen by CT.
[2021-06-27 19:27] VITALS: BP 152/92; PULSE 103; RESP 18; TEMP 37.1; O2SAT 98
[2021-06-27 20:43] LABS: Basophils Percent Auto 0.2 % (0.2-1.2); Hematocrit 44.9 % (42.0-52.0); Hemoglobin 14.9 g/dL (14.0-18.0); Immature Granulocyte Absolute 0.03 K/mm3 (0.00-0.031); Immature Granulocyte Percent A 0.2 % (0-0.5); Lymphocytes Absolute Auto 1.17 K/mm3 (0.9-3.2); Lymphocytes Percent Auto 9.3 % (18.3-44.2); Mean Corpuscular HGB Conc 33.2 g/dl (32-36); Mean Corpuscular Hemoglobin 29.1 pg (26-34); Mean Corpuscular Volume 87.7 fl (80-100); Mean Platelet Volume 10.1 fl (7.4-10.4); Monocytes Percent Auto 8.3 % (2.6-8.5); Neutrophils Absolute Auto 10.3 K/mm3 (1.3-6.7); Platelet Count Result 274 k/mm3 (150-375); Red Blood Count 5.12 M/mm3 (4.6-6.20); Red Cell Distribution Width 13.4 % (11.5-14.5); White Blood Count 12.5 K/mm3 (4.5-10.0)
[2021-06-27 20:51] LABS: Add Urine Microscopic? YES; Appearance Urine Clear (Clear); Bilirubin Urine Negative (Negative); Blood Urine Negative (Negative); Color Urine Yellow (Yellow); Glucose Urine UA Negative (Negative); Ketones Urine Negative (Negative); Leukocyte Esterase Ur Negative LEU/UL (Negative); Mucus Urine Rare /lpf; Nitrate Urine Negative (Negative); Protein Urine Negative (Negative); RBC Urine 0-2 /hpf (0-2); Specific Grav Ur 1.014 (1.001-1.035); Urobilinogen Urine Negative mg/dL (<2.0); WBC Urine 0-3 /hpf
[2021-06-27 20:55] LABS: Anion Gap 10 mmol/L (8-16); Blood Urea Nitrogen 14 mg/dL (9-20); Calcium 9.5 mg/dL (8.4-10.2); Carbon Dioxide 29 mmol/L (22-30); Chloride 102 mmol/L (98-107); Estimated CRCL calculation 82 ml/min; Estimated Glomerular Filt Rate > 60; Glucose 110 mg/dL (65-110); Potassium 4.3 mmol/L (3.4-5.0); Sodium 141 mmol/L (137-145)
--- NOTE | 2021-06-27 22:22 | ED.GENADULT ---
HPI - General Adult General Chief complaint: Urogenital-Male Stated complaint: diff urination/abd pain Time Seen by Provider: 06/27/21 22:07 Source: RN notes reviewed History of Present Illness HPI narrative: Patient presents emergency room from home for abdominal pain. Patient states he awoke this morning with pain in his right lower quadrant going into his right flank describes the pain as sharp and stabbing. States he initially felt he had an use restroom this morning and attempted to urinate but states he is unable to get a little bit of urine out he states this is happened several times where he feels that he needs to urinate and only urinates very small amount states he has had approximately 3-4 episodes of diarrhea this morning as well as an episode of emesis he denies any fevers or chills chest pain shortness of breath or any other symptoms states he took ibuprofen at home with minimal relief Related Data Home Medications Medication Instructions Recorded Confirmed atorvastatin 40 mg PO DAILY 10/15/20 10/15/20 buspirone 10 mg PO TID 10/15/20 10/15/20 clonazepam 0.5 mg PO TID 10/15/20 10/15/20 flecainide 100 mg PO BID 10/15/20 10/15/20 gabapentin 300 mg PO TID 10/15/20 10/15/20 levothyroxine 150 mcg PO DAILY 10/15/20 10/15/20 loperamide 2 mg PO QID PRN 10/15/20 10/15/20 magnesium 400 mg PO BID 10/15/20 10/15/20 omega 5-vdr-uvu-fish oil 1,400 cap PO DAILY 10/15/20 10/15/20 pantoprazole 40 mg PO DAILY 10/15/20 10/15/20 simethicone 80 mg PO DAILY PRN 10/15/20 10/15/20 vitamin B complex [B 1,000 tablet PO DAILY 10/15/20 10/15/20 Complex-Vitamin B12] Allergies Allergy/AdvReac Type Severity Reaction Status Date / Time No Known Allergies Allergy Unverified 05/03/18 06:47 Review of Systems Review of Systems: Gen.: Denies fevers or chills ENT: Denies congestion Respiratory: Denies shortness of breath or cough CV: Denies chest pain or palpitations GI: See HPI reports frequent urination Musculoskeletal: Denies back pain or muscle pain Neuro: Denies numbness, tingling, weakness or focal weakness Skin: Denies rash Except as documented, all other systems reviewed and negative [facility] Past Medical History Medical History Anxiety Depression Gastroesophageal reflux disease Hyperlipidemia Hypothyroidism Idiopathic peripheral neuropathy Irritable bowel syndrome Obstructive sleep apnea on CPAP Paroxysmal atrial fibrillation Surgical History Surgical History History of arthroscopy of left knee History of left inguinal hernia repair History of tonsillectomy Family History Family History Father Lung cancer Mother Hypertension Congestive heart failure Sibling Acute myocardial infarction Diabetes mellitus Sibling Chronic obstructive pulmonary disease Social History Social History Social History: Surrogate decision maker: Opal Boateng, . Code status: Full code. Smoking status: Never smoker Second hand tobacco smoke exposure: No Alcohol intake: never Substance use: never Additional living arrangements comments: The patient lives with his in [place]. They have 2 children. Additional occupation/education comments: On disability. 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 Gender identity (if verbalized by the patient): Male Spiritual care concerns: No Exam Narrative: APPEARANCE: No acute distress, nontoxic, resting in bed HEENT: Normocephalic, atraumatic, OMM RESPIRATORY: No respiratory distress, clear to auscultation bilaterally with no rhonchi wheezing or rales CARDIOVASCULAR: RRR s murmur ABDOMINAL: Soft nondistended tender palpation right lower quadrant no tenderness right upper quadrant, left upper quadrant left lower quadrant no rebound or
[2021-06-27 22:34] LABS: Alanine Aminotransferase 28 U/L (4-50); Albumin Level 4.5 g/dL (3.5-5.1); Alkaline Phosphatase 83 U/L (38-126); Aspartate Amino Transferase 32 U/L (17-59); Bilirubin,Total 0.7 mg/dL (0.2-1.3); Lipase 28 U/L (23-300)
[2021-06-27] MEDS: SODIUM CHLORIDE 0.9% IV 1,000 ML 999 ML IV CONT (22:40)
[2021-06-27 22:48] VITALS: BP 149/92; PULSE 91; RESP 22; O2SAT 96
[2021-06-27] MEDS: ONDANSETRON INJ 4 MG/2 ML VIAL IV PUSH (23:35)
[2021-06-27] MEDS: TAMSULOSIN HCL 0.4 MG CAPSULE PO (23:35)
[2021-06-27] MEDS: MORPHINE SULFATE (*CRX) 4 MG/ML INJ IV PUSH (23:55)
[2021-06-28 00:29] VITALS: BP 134/73; PULSE 85; RESP 16; O2SAT 98
--- NOTE | 2021-07-02 04:56 | PC.NURSE ---
Late Entry- 06/28/21 0030 Ns 1L infused at time of D/C
== END 2021-06-28 00:33 | disposition home or self-care (01) ==
PROVIDERS: Emergency Provider Emergency Medicine; PCP Internal Medicine
DX: N20.0 Calculus of kidney (principal); F32.A Depression, unspecified; E78.5 Hyperlipidemia, unspecified; E03.9 Hypothyroidism, unspecified; G60.9 Hereditary and idiopathic neuropathy, unspecified; G47.33 Obstructive sleep apnea (adult) (pediatric); I48.0 Paroxysmal atrial fibrillation; Z87.19 Personal history of other diseases of the digestive system
CPT/HCPCS: 36415; 74018; 74177; 80048; 80076; 81001; 83690; 85025; 96361; 96365; 96375; 99284; A9270; J0131; J2270; J2405; J7030; Q9967

== ENCOUNTER → 2021-07-26 09:30 | Outpatient (CLI) | payer MEDICARE, SELFPAY ==
[2021-07-26 19:11] LABS: SARS-CoV-2 RNA PCR Negative
== END ==
PROVIDERS: PCP Internal Medicine
DX: I48.92 Unspecified atrial flutter (principal); I47.1 Supraventricular tachycardia; Z20.822 Contact with and (suspected) exposure to COVID-19
CPT/HCPCS: C9803; U0003; U0005

== ENCOUNTER 2023-06-15 06:36 | Outpatient (CLI) | payer MEDICARE, SELFPAY ==
--- NOTE | ~2023-06-15 | CT_ITS ---
EXAMINATION: CTA chest DATE: 06/15/2023 07:24 INDICATION: Aortic aneurysm without rupture. TECHNIQUE: Computed tomographic angiography (CTA) of the chest was performed with 100 mL Omnipaque-35 0 intravenous contrast. Automated exposure control and iterative reconstruction technique were employ ed. The dose-length product was 1010.22 mGy-cm. Maximum intensity projection 3D-reconstructions of th e aorta and other arteries were constructed by the technologist on a separate workstation. COMPARISON: CT abdomen and pelvis 06/27/2021 FINDINGS: The lungs demonstrate mild atelectasis. There is a small pneumatocele in right lower lobe. No pleural effusion. The heart size is normal. No pericardial effusion. There is no pulmonary embolus . The aorta measures 4.1 cm at the sinuses of Valsalva, 3.5 cm at the sinotubular junction, 3.7 cm in the mid ascending aorta, 3.0 cm at the aortic isthmus, and 3.1 cm in the mid descending aorta. There is mild thoracic spondylosis. IMPRESSION: 1. Ectasia of proximal aorta at the sinuses of Valsalva measuring 4.1 cm. Reviewed, dictated and finalized at location E.
== END 2023-06-15 06:37 | disposition home or self-care (01) ==
PROVIDERS: PCP Internal Medicine; Visit Provider Internal Medicine Cardiovascular Disease
DX: R07.89 Other chest pain (principal); I71.21 Aneurysm of the ascending aorta, without rupture
CPT/HCPCS: 71275; Q9967

== ENCOUNTER 2024-08-16 09:22 | Outpatient (CLI) | payer MEDICARE, SELFPAY ==
--- NOTE | ~2024-08-16 | CT_ITS ---
EXAMINATION: CTA chest DATE: 08/16/2024 10:01 INDICATION: Abnormality of the thoracic aorta TECHNIQUE: Computed tomographic angiography (CTA) of the chest was performed without and with 100 mL Omnipaque-350 intravenous contrast. Volume-rendered 3D-reconstructions of the aorta and large arterie s were constructed by the technologist on a separate workstation. Automated exposure control and iter ative reconstruction technique were employed. The dose-length product was 1011.05 mGy-cm. COMPARISON: None. FINDINGS: Mild atelectasis in the dependent lower lobes and mild discoid atelectasis at the lingula. No pneumon ia, pulmonary edema or pleural effusion. Heart size is normal. No pericardial effusion. Aorta measure s 4.3 x 4.0 cm at the sinuses of Valsalva, 3.6 x 3.1 cm at the sinotubular junction, 3.7 x 3.7 cm the mid ascending aorta, 3.1 x 3.1 cm at the aortic isthmus and 3.1 x 3.1 cm the mid descending thoracic aorta. No dissection. No pathologically enlarged thoracic lymphadenopathy. Visualized upper abdomen is unremarkable. Mild thoracic spondylosis. IMPRESSION: 1. No significant interval change in ectatic proximal aorta which measures 4.3 x 4.0 cm at the level of the sinuses of Valsalva. Reviewed, dictated and finalized at location A. AND SOIL SCIENTIST
== END 2024-08-16 09:23 | disposition home or self-care (01) ==
PROVIDERS: PCP Internal Medicine; Visit Provider Specialist
DX: Q25.40 Congenital malformation of aorta unspecified (principal)
CPT/HCPCS: 71275; Q9967

== ENCOUNTER 2025-07-28 01:25 | Day surgery (SDC) | payer MEDICARE, SELFPAY ==
[2025-07-07 13:29] VITALS: BMI 42.6
--- OUTSIDE RECORDS SUMMARY | 2025-07-28 01:27 | XMS_ITS | Encounter Summary ---
Author Organization [facility] Healthcare Address [address] [place] [address] Care Team Providers Care Home Economist Name Role Phone Brant Peterson MD Primary Care Provider Vijay REESE MD, Adam Sifuentes Unavailable [phone] Encounter Details Date Type Department Care Team (Late st Contact Info) Description 08/16/2024 [place] Only [facility] [address] [place] [id number] Haider Yanes MD [address] [place] [address] Social History Tobacco Use Types Packs/Day Years Used Date Smoking Tobacco: Never Cigarettes Smokeless Tobacco: Never Alcohol Use Standard Drinks/Week Comments No 0 (1 standard drink = 0.6 oz pur e alcohol) Sex and Gender Information Value Date Recorded Sex Assigned at Not on file 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 Gender Identity Male 11/30/2020 9:33 PM CDT Sexual Orientation Straight 11/30/2020 9: 33 PM CDT documented as of this encounter Plan of Treatment Not on file documented as of this encounter Procedures Procedure Name Priority Date/Time Associated Diagnosis Comments SCAN - RADIOLOGY/IMAGING 08/16/2024 documented in this encounter Results * SCAN - RADIOLOGY/IMAGING (08/16/2024) Anatomical Region Laterality Modality Other us Haider Yanes MD Final Re sult documented in this encounter Visit Diagnoses Not on filedocumented in this encounter Care Teams Home Economist Relationship Specialty Start Date End Date Brant Peterson MD PCP - General 10/28/14 Adam Linares III, MD Consulting Physician Cardiology 10/28/20 documented as of this encounter
--- OUTSIDE RECORDS SUMMARY | 2025-07-28 01:27 | XMS_ITS | Clinical Summary ---
Author Organization [facility] [employer] Address [address] [place] [address] Care Team Providers Care Tar Heater Name Role Phone Brant Peterson MD Primary Care Provider [phone] Source Comments [facility] [employer],non-owned Affiliates and Associated Physician Practices is amultiple site organization consisting of ambulatory clinics and hospital sitesin [place], [place], [place] and [place]. This disclosure is being madepursuant to the Care Everywhere program and may not contain all information available regarding this patient. Last updated 18.[facility] [employer] Allergies No known active allergies Medications * Be aware that medications may not be up to date on this document. Alwaysverify current medications with the patient. escitalopram (LEXAPRO) 20 MG tabletIndicatio ns:Generalized Anxiety Disorder Take 30 mg by mouth once daily Reasons: Generalized Anxiety Disorder Active clonazePAM (KLONOPIN) 0.5 MG tabletIndicatio ns:Panic Disorder Take 0.5 mg by mouth 3 times daily Reasons: Panic Disorder Active gabapentin (NEURONTIN) 300 MG capsuleIndicati ons:Neuropathy Take 300 mg by mouth 3 times daily Reasons: Nerve Disease Active pantoprazole EC (PROTONIX) 40 MG tabletIndicatio ns:Gastric Ulcer Take 40 mg by mouth once daily Reasons: Stomach Ulcer Active levothyroxine (SYNTHROID) 150 MCG tabletIndicatio ns:Hypothyroidi sm Take 150 mcg by mouth daily before breakfast Reasons: Underactive Thyroid Active loperamide (IMODIUM) 2 MG capsule Take 2 mg by mouth 4 times daily as needed for Diarrhea Active aspirin (ASPIRIN) 81 MG chew tablet Take 81 mg by mouth once daily Active Active Problems Problem Noted Date Diagnosed Date Syncope 03/29/2018 Family History Medical History Relation Name Comments CAD (Coronary Artery Disease) Brother Cancer - Lung Father Other Mother CHF Relation Name Status Comments Brother Father Mother Social History Tobacco Use Types Packs/Day Years Used Date Smoking Tobacco: Never Assessed Sex and Gender Information Value Date Recorded Sex Assigned at Not on file Legal Sex Male 6:24 AM CUFF FOLDER Gender Identity Not on file Sexual Orientation Not on file Last Filed Vital Signs Vital Sign Reading Time Taken Comments Blood Pressure 138/87 03/30/2018 7:56 PM CDT Pulse 95 03/30/2018 7:56 PM CDT Temperature 36.9 C (98.4 F) 03/30/2018 7:56 PM CDT Respiratory Rate 14 03/30/2018 7:56 PM CDT Oxygen Saturation 95% 03/30/2018 7:56 PM CDT Inhaled Oxygen Concentration - - Weight 117.9 kg (260 lb) 03/29/2018 4:51 PM CDT Height 172.7 cm (5' 8) 03/29/2018 4:51 PM CDT Body Mass Index 39.53 03/29/2018 4:51 PM CDT Plan of Treatment Health Maintenance Due Date Last Done Comments COLOGUARD (AGES 45-75) - COL ON CA SCREENING 1965 COLON MONITORING 1965 COLONOSCOPY - COLON CA SCREENING 1965 CT COLONOGRAPHY - COLON CA SCREENING 1965 Colorectal Cancer Screening 1965 FIT - COLON CA SCREENING 1965 FLEX SIG - COLON CA SCREENING 1965 LIPID TESTING 1965 HIV SCREENING 1980 HEPATITIS C SCREENING 07/27/1983 DTAP/TDAP/TD VACCINES (1 - Tdap) 1984 HEPATITIS B VACCINE (1 of 3 - 19+ 3-dose series) 1984 PNEUMOCOCCAL VACCINE 50+ (1 of 1 - PCV) 2015 ZOSTER VACCINE (1 of 2) 2015 DEPRESSION SCREENING 08/21/2024 COVID-19 VACCINE ( - 2024-2 6 season) 2025 INFLUENZA VACCINE (#1) 2025 HIB VACCINE Aged Out No longer eligi ble based on patient's age to complete this topic HPV VACCINE Aged Out No longer eligi ble based on patient's age to complete this topic MENINGOCOCCAL (Group B) VACC INE SHARED DECISION-MAKING Aged Out No longer eligibl e based on patient's age to complete this topic MENINGOCOCCAL GROUPS A/C/Y/W VACCINE Aged Out No longer eligible b ased on patient's age to complete this topic Insurance [facility] Address: [facility] [address] [place] [address] MEDICARE Advance Directives * Full Code (Latest Code Status on File) Date Activated Date Inactivated Comments 03/29/2018 5:37 PM 03/30/2018 10:09 PM Care Teams Tar Heater Relationship Specialty Start Date End Date Brant Peterson MD [address] [place] [id number] PCP - General Internal Medicine 03/30/18
--- OUTSIDE RECORDS SUMMARY | 2025-07-28 01:27 | XMS_ITS | Clinical Summary ---
Author Organization [facility] [address] [place] [id number] Care Team Providers Care Tankage Grinder Operator Name Role Phone Brant Peterson MD Primary Care Provider Vijay REESE MD, Adam Sifuentes Unavailable [phone] Allergies No known active allergies Medications clonazePAM (KlonoPIN) 0.5 mg tablet Take 1 tablet (0.5 mg total) by mouth 3 (three) times a day Active gabapentin (NEURONTIN) 300 mg capsule Take 1 capsule (300 mg total) by mouth 3 (three) times a day Active levothyroxine (SYNTHROID, LEVOTHROID) 150 mcg tablet Take 1 tablet (150 mcg total) by mouth daily Active loperamide (IMODIUM) 2 mg capsule Take 1 capsule (2 mg total) by mouth 4 (four) times a day as needed Active pantoprazole DR (PROTONIX) 40 mg EC tablet Take 1 tablet (40 mg total) by mouth daily Active busPIRone (BUSPAR) 10 mg tabletIndicatio ns:Generalized Anxiety Disorder Take 1 tablet (10 mg total) by mouth 3 (three) times a day Active atorvastatin (LIPITOR) 40 mg tablet Take 1 tablet (40 mg total) by mouth daily Active cyanocobalamin (Vitamin B-12) 1,000 mcg tabletIndicatio ns:Prevention of Vitamin B12 Deficiency Take 1 tablet (1,000 mcg total) by mouth daily Active simethicone (GAS-X) 125 mg capsule every 6 (six) hours as needed 01/30/2018 Active aspirin 81 mg enteric coated tablet Take 1 tablet (81 mg total) by mouth daily Active ascorbic acid (VITAMIN C) 1,000 mg tablet Take 2 tablets (2,000 mg total) by mouth daily Active diltiaZEM CD (CARDIZEM CD) 360 mg 24 hr capsule Take 1 capsule (360 mg total) by mouth daily 90 capsule 3 09/23/2024 Active dabigatran (PRADAXA) 150 mg capsule Take 1 capsule (150 mg total) by mouth 2 (two) times a day 180 capsule 1 12/18/2024 Active cholecalciferol (Vitamin D3) 5,000 unit tablet Take 1 tablet (5,000 Units total) by mouth daily 08/21/2022 Active vitamin K2 100 mcg capsule Take 1 tablet by mouth daily Active MAGNESIUM GLYCINATE ORAL Take 500 mg by mouth daily Active turmeric root extract 500 mg capsule Take 1 tablet by mouth daily Active traZODone (DESYREL) 50 mg tablet Take 1 tablet (50 mg total) by mouth nightly 04/04/[address] (CYMBALTA) 30 mg capsule Take 1 capsule (30 mg total) by mouth daily 04/04/2025 Active Active Problems Problem Noted Date Diagnosed Date Paroxysmal atrial fibrillation 12/11/2024 Assessment & Plan (04/17/2025 9:35 PM CDT): Chronic, stable. Doing well post-ablation. Some AF during blanking, now resolved. [id number] = 1. Reasonable to avoid long-term anticoagulation --STOP dabigatran --Continue diltiazem XR 360 mg daily --Stop metoprolol Assessment & Plan (12/11/2024 9:27 AM CDT): New chronic problem. I counseled the patient regarding management options for symptomatic paroxysmal atrial fibrillation. These include rate control/expectant therapy, antiarrhythmic drug therapy or catheter ablation. After review of the relative merits of each approach, the patient expressed preference for ablation. I reviewed the procedural steps, risks/benefits, recovery and expected outcomes for AF ablation. I discussed the possibility of requiring a second procedure in order to achieve an optimal outcome.I emphasized the importance of uninterrupted anticoagulation for at least 3 months following ablation, regardless of baseline thromboembolic risk. After answering all questions, the patient elected to proceed with ablation. [id number] = 1 (hypertension). --Atrial fibrillation ablation w/anesthesia --Start dabigatran 150 mg BID. Hold starting the evening prior to procedure. Anticipate continuing for 3 months post-ablation, then stopping. --Continue diltiazem XR 360 mg daily, metoprolol XL 12.5 mg daily Pt will follow-up 1 month post-ablation in the AF clinic with a nurse practitioner. Follow-up with me 3 months post-ablation. Bradycardia 09/18/2024 Assessment & Plan (09/18/2024 9:23 PM WATER RESOURCES TECHNICAL OFFICER): -Patient reports he recently noted bradycardia on his pulse oximeter with heart rates dropping in the upper 30s. -Reported chest pressure, shortness of breath, and nausea. Denied any jayme syncope. -No medication changes were made today -EKG today demonstrates sinus arrhythmia with a first-degree AV block -We will place the patient on an event monitor, he prefers a 30 day event monitor -Follow up in 3 months for a 12 lead EKG and clinic visit Other chest pain 06/01/2023 Aortic aneurysm 06/01/2023 Palpitations 04/18/2023 Assessment & Plan (04/18/2023 8:50 AM CDT): Frequent palpitations, relatively short episodes. At times associated with exertion and shortness of breath. Suspect AT, but cannot exclude other mechanisms such as AF. Pt has focal AT that was not mapped/ablated at time of last EPS. --14 day Bardy monitor --Increase diltiazem XR to 240 mg daily after Bardy is complete --Agree with echocardiogram as arranged by Dr. Spivey --Further management pending monitor/echo results S/P RF ablation operation for arrhythmia 023 WADE (dyspnea on exertion) 03/08/2023 Atrial tachycardia 09/20/2021 Assessment & Plan (04/05/2022 9:15 AM CDT): Well controlled on diltiazem. Side effects from coreg resolved after stopping. --Continue diltiazem XR 120 mg daily Assessment & Plan (12/28/2021 9:30 AM CDT): Nonsustained AT, well controlled on beta shona. Now experiencing dizzy spells potentially related to high dose carvedilol. --Stop carvedilol. --Start diltiazem XR 120 mg once every evening. --Call to report any change in symptoms Assessment & Plan (09/20/2021 10:43 AM WATER RESOURCES TECHNICAL OFFICER): Frequent bursts of nonsustained AT observed during recent EPS. Pt feeling intermittent, short-lived palpitations post ablation. Suspect this is PAT. AT was mapped to left atrium but was not targeted for ablation given uncertain clinical relevance. Pt not particularly bothered by symptoms but does notice them intermittently. --Increase carvedilol to 25 mg PO BID --F/u 3 months. Consider monitor if symptoms continue. Paroxysmal SVT (supraventricular tachycardia) Assessment & Plan (04/17/2025 9:36 PM CDT): Chronic, stable. No recurrence post-slow pathway ablation. Some PAT noted at EPS. --Continue diltiazem 360 mg daily Assessment & Plan (12/11/2024 9:28 AM CDT): Chronic, stable. S/p slow pathway ablation. No recurrence. 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 Pt also had nonsustained AT inducible on isuprel. This was not mapped/ablated. --Monitor as above --Increase diltiazem as above Assessment & Plan (04/05/2022 9:15 AM CDT): S/p successful ablation of typical AVNRT. No recurrence, feeling well. --Continue diltiazem XR 120 mg daily Assessment & Plan (12/28/2021 9:28 AM CDT): S/p successful ablation of AVNRT. Doing very well, without recurrence. --Stop carvedilol, start diltiazem as above. Assessment & Plan (09/20/2021 10:43 AM WATER RESOURCES TECHNICAL OFFICER): Typical AVNRT, successfully ablated. No recurrence. --F/u 3 months Assessment & Plan (07/06/2021 10:50 AM WATER RESOURCES TECHNICAL OFFICER): New problem. Frequent, severe episodes with marked tachycardia up to 200 bpm documented on ambulatory monitor. Refractory to carvedilol. Recommend diagnostic EP study, possible catheter ablation of this SVT mechanism. Discussed alternatives, such as antiarrhythmic drugs. Given severity of this arrhythmia, recommend ablation as first line strategy. Pt understands and agrees. --Will arrange for diagnostic EP study, SVT ablation w/anesthesia. --Carvedilol 12.5 mg PO BID, hold for 3 days prior to procedure. --Continue 30d monitor to completion. Near syncope 03/04/2021 Status post ablation of atrial flutter Morbid obesity with BMI of 40.0-44.9, adult 10/19 Hyperlipidemia 10/26/2020 Gastroesophageal reflux disease without esophagi tis 10/26/2020 BPPV (benign paroxysmal positional vertigo) 03/21 Assessment & Plan (04/05/2018 4:59 AM CDT): Describes lightheadedness generally with moving his head quickly, at times with sensation of nearly passing out (since 03/23 this month) - on pressing further does not sound like patient has actually lost consciousness with this - admitted at [facility], work-up included ECG, 2D echo, tilt-table testing, CT head and CTA all without abnormality explaining symptoms - presented here for ongoing symptoms - ECG here with sinus rhythm and frequent PACs, repeat ECG NSR - can check orthostatic vitals, Tremont-Hallpike +, monitor on telemetry - very low likelihood cardiogenic given recent negative work-up and description. Unlikely vasovagal given negative Tilt-table - reportedly positive Tremont-Hallpike at OSH and positive Tremont-Hallpike here. Symptoms most consistent with vertigo - can try a carotid sinus massage test? - treatment with Epply maneuver BENSON on CPAP 04/05/2018 Assessment & Plan (04/05/2018 5:00 AM CDT): Cont home CPAP 10 cmH2O Hypothyroidism 04/05/2018 Assessment & Plan (04/05/2018 5:02 AM CDT): Cont' levothyroxine Anxiety disorder 04/05/2018 Assessment & Plan (04/05/2018 5:03 AM CDT): Cont home escitalopram, holding clonazepam Neuropathy 04/05/2018 Assessment & Plan (04/05/2018 5:04 AM CDT): Unclear etiology. Cont home gabapentin 300 TID IBS (irritable bowel syndrome) 07/24/2014 Overview (11/24/2016): Irritable bowel syndrome Assessment & Plan (04/05/2018 5:08 AM CDT): Cont home loperamide Typical atrial flutter Assessment & Plan (04/17/2025 9:35 PM CDT): Chronic, stable. S/p CTI ablation, no recurrence. Observe Assessment & Plan (12/11/2024 9:28 AM CDT): Chronic, stable. S/p CTI ablation. No recurrence. --Continue expectant managment Assessment & Plan (09/18/2024 9:22 PM WATER RESOURCES TECHNICAL OFFICER): -Status post CTI ablation in 2020 No reoccurrence Assessment & Plan (04/18/2023 8:51 AM CDT): S/p CTI ablation. No recurrence. Assessment & Plan (04/05/2022 9:16 AM CDT): S/p CTI ablation. No recurrence. --Monitor clinically for development of AF Assessment & Plan (12/28/2021 9:29 AM CDT): S/p successful ablation of CTI-dependent flutter. No recurrence. Pt at risk for developing atrial fibrillation in future. --Continue clinical monitoring for AF. --Off anticoagulation Assessment & Plan (09/20/2021 10:44 AM WATER RESOURCES TECHNICAL OFFICER): S/p CTI ablation 10/2020. Doing well, without recurrence. High risk for developing atrial fibrillation, especially in light of observed pAT. --Off anticoagulation. --Monitor clinically for AF. Assessment & Plan (07/06/2021 10:49 AM WATER RESOURCES TECHNICAL OFFICER): Resolved, s/p ablation. No evidence of recurrence. --Off anticoagulation. --Continue clinical monitoring for AF --30d MCT ongoing. Assessment & Plan (12/01/2020 8:10 AM CDT): S/p EPS and CTI ablation on 10/28/20. No recurrence. Feeling well. No documented atrial fibrillation. Recommend total of 3 months of anticoagulation post- ablation, then stop. Clinical monitoring for new atrial fibrillation is warranted to guide decisions regarding indication for resuming long-term anticoagulation. --Stop flecainide and carvedilol. --Continue apixaban 5 mg BID until 01/28/21, then stop. --F/u 3 months Resolved Problems Problem Noted Date Diagnosed Date Resolved Date Atrial flutter, paroxysmal 10/25/2020 0 12/01/2020 Encounters Date Type Department Care Team Description 07/11/2025 Telephone Arrhythmia Center [address] [address] Haider Yanes MD from Last 3 Months Surgical History Surgery Date Site/Laterality Comments HERNIA REPAIR hernia repair OTHER SURGICAL HISTORY left foot big toe reconstruction VASECTOMY 1990 CARDIAC ELECTROPHYSIOLOGY PROCEDURE 12/31/2024 N/A Procedure: ABLATION ATRIAL FIBRILLATION (A-FIB) VIA PULMONARY VEIN ISOLATION 39590; Surgeon: Adam Linares III, MD; Location: [facility] EP [facility]; Service: Cardiovascular; Laterality: N/A; Medical devices from this surgery are in the Medical Devices section. Medical History Medical History Date Comments Gastroesophageal reflux disease acid reflux Disorder of thyroid Thyroid dise ase Irritable bowel syndrome Irritab le bowel disease Hx Other Medical Claustrophobic; Comments: GFC 04/24/2014 - Neuropathy Atrial flutter (HCC) Anxiety 1998 Arthritis 2016 Depression 2013 Neuromuscular disorder 2010 Sleep apnea 2010 Kidney stone 06/27/2021 Heart disease 05/2023 Family History Medical History Relation Name Comments COPD Brother 1 Rolo Cancer Brother 1 Rolo Diabetes Brother 2 Venancio Heart attack Brother 2 Venancio Hypertension Brother 2 Venancio Early Brother 3 Jae Cancer Father Jarrod Hearing loss Father Jarrod Arthritis Mother Eva Heart disease Mother Eva Hypertension Mother Eva Kidney disease Mother Eva Hypertension Other 1 Family history of Hypertension; Thyroid disease Other 2 Family histo ry of Thyroid disorder; Cancer Other 3 Family history of Cancer; Relation Name Status Comments Brother 1 Rolo Brother 2 Venancio Brother 3 Jae Father Jarrod Mother Eva Other 1 Other 2 Other 3 Social History Tobacco Use Types Packs/Day Years Used Date Smoking Tobacco: Never Cigarettes Smokeless Tobacco: Never Tobacco Cessation:Counseling Given: Not Answered Alcohol Use Standard Drinks/Week Comments No 0 (1 standard drink = 0.6 oz pur e alcohol) AUDIT-C Answer Date Recorded Q1: How often do you have a drink containing alc ohol? Never 12/31/2024 Average Number of Drinks Not on file 025 Frequency of Binge Drinking Not on file 12/19 Personal Safety Answer Date Recorded Have you ever been in or are you currently in a harmful physical or emotional relationship or is someone making you feel afraid or unsafe? Denies 12/31/2024 Sex and Gender Information Value Date Recorded Sex Assigned at Not on file Legal Sex Male 11:14 AM WATER RESOURCES TECHNICAL OFFICER Gender Identity Male 11/30/2020 9:33 PM CDT Sexual Orientation Straight 11/30/2020 9: 33 PM CDT Last Filed Vital Signs Vital Sign Reading Time Taken Comments Blood Pressure 126/66 04/16/2025 9:36 AM CDT Pulse 69 04/16/2025 9:36 AM CDT Temperature 36.2 C (97.1 F) 12/31/2024 9:55 AM CDT Respiratory Rate 18 12/31/2024 12:20 PM CDT Oxygen Saturation 96% 04/16/2025 9:36 AM CDT Inhaled Oxygen Concentration - - Weight 128.4 kg (283 lb) 04/16/2025 9:36 AM CDT Height 172.7 cm (5' 7.99) 04/16/2025 9:36 AM CD T Body Mass Index 43.04 04/16/2025 9:36 AM CDT Plan of Treatment Health Maintenance Due Date Last Done Comments Depression Screening 1965 Hepatitis C Screening 1965 Prostate Cancer Screening-PSA 1965 Hepatitis B Screening 1983 Regular Well Visit/Exam 18-64 1983 Zoster Vaccine (2 of 3) 07/06/2023 05/11/2023, 03/08 Colon Cancer Screening-Colonoscopy 02/04/2025 02/04/2015, 04/10/2013 Covid-19 Vaccine (3 - season) 2025 06/10/2021, 05/13/2021 Influenza Vaccine (#1) 2025 , 05/11/2023, 05/13/2021, Additional history exists DTaP/Tdap/Td Vaccine (3 - Td or Tdap) 03/08/2033 03/08/2023, 11/26/2013 Colon Cancer Screening-CT Colonography Discontinued 02/04/2015, 04/10/2013 Colon Cancer Screening-DNA Stool Discontinued 02/04/2015, 04/10/2013 Colon Cancer Screening-FIT Discontinued 02/04/2015, Colon Cancer Screening-Sigmoidoscopy Discontinued 02/04/2015, 04/10/2013 Pneumococcal vaccine <65 Aged Out 03/08/2023 No longer eligible based on patient's age to complete this topic Medical Devices Implanted Type Area Plastic Parts Fabricator Device Identifier Shelf Expiration Date Model / Serial / Lot [employer] [id number] System 6-12fr Mvp Venous Closure Vascade - [id number] - [id number] Implanted:Qty: 1 on 10/28/2020 by Adam Linares III, MD at [facility] [employer] 09/02/2022 800-612C-1 0U / [id number] / [id number] [employer] [id number] System 6-12fr Mvp Venous Closure Vascade - [id number] - [id number] Implanted:Qty: 1 on 10/28/2020 by Adam Linares III, MD at [facility] [employer] 09/02/2022 800-612C-1 0U / [id number] / [id number] [employer] [id number] System 6-12fr Mvp Venous Closure Vascade - [id number] - [id number] Implanted:Qty: 1 on 10/28/2020 by Adam Linares III, MD at [facility] [employer] 08/04/2022 800-612C-1 0U / [id number] / [id number] [employer] [id number] System 6-12fr Mvp Venous Closure Vascade - [id number] - [id number] Implanted:Qty: 1 on 10/28/2020 by Adam Linares III, MD at [facility] [employer] 08/04/2022 800-612C-1 0U / [id number] / [id number] [employer] [id number] Device Closure Vascade Od5 Fr Femoral Artery - [id number] - [id number] Implanted:Qty: 1 on 07/29/2021 by Adam Linares III, MD at [facility] [employer] 04/07/2023 700-500DX- 05U / [id number] / [id number] [employer] [id number] System 6-12fr Mvp Venous Closure Vascade - [id number] - [id number] Implanted:Qty: 1 on 07/29/2021 by Adam Linares III, MD at [facility] [employer] 03/31/2023 800-612C-1 0U / [id number] / [id number] [employer] [id number] System 6-12fr Mvp Venous Closure Vascade - [id number] - [id number] Implanted:Qty: 1 on 07/29/2021 by Adam Linares III, MD at [facility] [employer] [employer] 03/31/2023 800-612C-1 0U / [id number] / [id number] [employer] [id number] System 6-12fr Mvp Venous Closure Vascade - [id number] - [id number] Implanted:Qty: 1 on 07/29/2021 by Adam Linares III, MD at [facility] [employer] 03/31/2023 800-612C-1 0U / [id number] / [id number] [employer] Vascade Mvp 6-12fr Venous Closure [id number] - [id number] - [id number] Implanted:Qty: 1 on 12/31/2024 by Adam Linares III, MD at [facility] [employer] [employer] 11/14/2026 800-612C-1 0U / [id number] / [id number] [employer] Device Vascular Closure Vascade Mvp Xl 10-12fr Venous Strl 800-1012xl - [id number] - [id number] Implanted:Qty: 1 on 12/31/2024 by Adam Linares III, MD at [facility] [employer] 09/18/2026 800-1012XL / [id number] / [id number] [employer] Vascade Mvp 6-12fr Venous Closure [id number] - [id number] - [id number] Implanted:Qty: 1 on 12/31/2024 by Adam Linares III, MD at [facility] 11/14/2026 800-612C-1 0U / [id number] [id number] / [id number] Procedures Procedure Name Priority Date/Time Associated Diagnosis Comments COLONOSCOPY REPORT 02/04/2015 from Last 3 Months or Most Recently Relevant to Health Maintenance Results * COLONOSCOPY REPORT (02/04/2015) Anatomical Region Laterality Modality Other Narrative 02/04/2015 Ordered by an unspecified provider. us Historical Provider GI PROCEDURE ORDERABLES F inal Result from Last 3 Months or Most Recently Relevant to Health Maintenance Insurance [employer] [facility]IC[facility] Advance Directives For more information, please contact: [phone] * Full Code (Latest Code Status on File) Date Activated Date Inactivated Comments 10/25/2020 5:26 PM 10/28/2020 11:31 PM * Full Code Date Activated Date Inactivated Comments 04/04/2018 11:48 PM 04/05/2018 7:35 PM Care Teams Tankage Grinder Operator Relationship Specialty Start Date End Date Brant Peterson MD PCP - General 10/28/14 Adam Linares III, MD Consulting Physician Cardiology 10/28/20
[2025-07-28 12:06] VITALS: BP 138/77; PULSE 90; RESP 20; TEMP 36.2; O2SAT 96
--- NOTE | 2025-07-28 12:21 | WPDANESEPPF ---
Anes - Initial Pre Proc Eval Procedure: Operation Date: 07/28/25 13:30 Proposed Procedures p Screening Colonoscopy - Alonso Valera MD Date/Time: 07/28/25 12:21 Surgeon: Alonso Valera MD Pre Op Diagnosis: Other fecal abnormalities Patient Data Age: 59 Gender: M Height: 1.73 m Weight: 123.2 kg Last Vital Signs Temp 36.2 C L 07/28/25 12:06 Pulse 90 07/28/25 12:06 Resp 20 07/28/25 12:06 BP 138/77 07/28/25 12:06 Pulse Ox 96 07/28/25 12:06 O2 Del Method Room Air 07/28/25 12:06 Allergies Allergy/AdvReac Type Severity Reaction Status Date / Time No Known Allergies Allergy Verified 07/07/25 13:21 Home Medications ?Medication ?Instructions ?Recorded ?Confirmed ?Type atorvastatin 40 mg tablet 40 mg PO DAILY 10/15/20 07/28/25 History buspirone 10 mg tablet 10 mg PO TID 10/15/20 07/28/25 History clonazepam 0.5 mg tablet 0.5 mg PO TID 10/15/20 07/28/25 History flecainide 100 mg tablet 100 mg PO BID 10/15/20 07/28/25 History gabapentin 300 mg capsule 300 mg PO TID 10/15/20 07/28/25 History levothyroxine 150 mcg tablet 150 mcg PO DAILY 10/15/20 07/28/25 History loperamide 2 mg capsule 2 mg PO QID PRN IBS 10/15/20 07/28/25 History magnesium 200 mg tablet 400 mg PO BID 10/15/20 07/28/25 History pantoprazole 40 mg tablet,delayed 40 mg PO DAILY 10/15/20 07/28/25 History release simethicone 80 mg chewable tablet 80 mg PO DAILY PRN Abdominal 10/15/20 07/07/25 History Discomfort vitamin B complex (B 1,000 tablet PO DAILY 10/15/20 07/28/25 History Complex-Vitamin B12 tablet) tamsulosin 0.4 mg capsule (Flomax) 0.4 mg PO DAILY #5 caps 06/28/21 07/28/25 Rx diltiazem HCl 360 mg 360 mg PO Q24H 07/07/25 07/28/25 History capsule,extended release 24 hr Patient hx anesthesia problems: none Family hx anesthesia problems: none Results Review: All pre-operative results and documents have been reviewed as part of the pre-operative evaluation. [facility] Past Medical History Medical History Depression Idiopathic peripheral neuropathy Irritable bowel syndrome Anxiety Hypothyroidism Gastroesophageal reflux disease Obstructive sleep apnea on CPAP Hyperlipidemia Paroxysmal atrial fibrillation Surgical History Surgical History History of tonsillectomy History of arthroscopy of left knee History of left inguinal hernia repair Family History Family History Father Lung cancer Mother Hypertension Congestive heart failure Sibling Acute myocardial infarction Diabetes mellitus Sibling Chronic obstructive pulmonary disease Social History Social History Social History: Surrogate decision maker: Opal Boateng, . Code status: Full code. Smoking status: Never smoker Second hand tobacco smoke exposure: No Alcohol intake: never Substance use: never Substance use type: does not use Living arrangements: with family Additional living arrangements comments: The patient lives with his in [place]. They have 2 children. Additional occupation/education comments: On disability. 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 Gender identity (if verbalized by the patient): Male Spiritual care concerns: No Anes - Eval Final PreProcedure Day of Procedure 07/28/25 12:21 Patient weight: obese Heart: regular rate and rhythm Lungs: clear to auscultation Airway: Mallampati scale class II Neurological: alert and oriented Last oral intake: >/= 8 hours ASA classification: III Emergent: no Anesthetic plan: proceed Anesthesia type and monitoring: general GIVS and standard monitoring Results Review: All pre-operative results and documents have been reviewed as part of the pre-operative evaluation. Informed Consent: The patient's anesthetic plan and its attendant risks and benefits were discussed with the patient/family/POA. Questions were solicited and answers provided to the satisfaction of the patient/family/POA.
--- NOTE | 2025-07-28 12:57 | PM.IMHP2 ---
H&P: HPI History of Present Illness Date/Time: 07/28/25 12:57 Chief Complaint: Positive Cologuard Narrative: Patient had a recent Cologuard test positive. He is now referred for colonoscopy. He has had other colonoscopies in the past for abdominal pain and gas but never had polyps. No family history of colon cancer. Review of Systems Review of Systems: All systems reviewed & are unremarkable except as noted in HPI and below PMFSH Past Medical History Medical History Depression Idiopathic peripheral neuropathy Irritable bowel syndrome Anxiety Hypothyroidism Gastroesophageal reflux disease Obstructive sleep apnea on CPAP Hyperlipidemia Paroxysmal atrial fibrillation Surgical History Surgical History History of tonsillectomy History of arthroscopy of left knee History of left inguinal hernia repair Family History Family History Father Lung cancer Mother Hypertension Congestive heart failure Sibling Acute myocardial infarction Diabetes mellitus Sibling Chronic obstructive pulmonary disease Social History Social History Social History: Surrogate decision maker: Opal Boateng, . Code status: Full code. Smoking status: Never smoker Second hand tobacco smoke exposure: No Alcohol intake: never Substance use: never Substance use type: does not use Living arrangements: with family Additional living arrangements comments: The patient lives with his in [place]. They have 2 children. Additional occupation/education comments: On disability. 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 Gender identity (if verbalized by the patient): Male Spiritual care concerns: No Meds Home Medications and Allergies Home Medications ?Medication ?Instructions ?Recorded ?Confirmed ?Type atorvastatin 40 mg tablet 40 mg PO DAILY 10/15/20 07/28/25 History buspirone 10 mg tablet 10 mg PO TID 10/15/20 07/28/25 History clonazepam 0.5 mg tablet 0.5 mg PO TID 10/15/20 07/28/25 History flecainide 100 mg tablet 100 mg PO BID 10/15/20 07/28/25 History gabapentin 300 mg capsule 300 mg PO TID 10/15/20 07/28/25 History levothyroxine 150 mcg tablet 150 mcg PO DAILY 10/15/20 07/28/25 History loperamide 2 mg capsule 2 mg PO QID PRN IBS 10/15/20 07/28/25 History magnesium 200 mg tablet 400 mg PO BID 10/15/20 07/28/25 History pantoprazole 40 mg tablet,delayed 40 mg PO DAILY 10/15/20 07/28/25 History release simethicone 80 mg chewable tablet 80 mg PO DAILY PRN Abdominal 10/15/20 07/07/25 History Discomfort vitamin B complex (B 1,000 tablet PO DAILY 10/15/20 07/28/25 History Complex-Vitamin B12 tablet) tamsulosin 0.4 mg capsule (Flomax) 0.4 mg PO DAILY #5 caps 06/28/21 07/28/25 Rx diltiazem HCl 360 mg 360 mg PO Q24H 07/07/25 07/28/25 History capsule,extended release 24 hr Allergies Allergy/AdvReac Type Severity Reaction Status Date / Time No Known Allergies Allergy Verified 07/07/25 13:21 Vital Signs Vital Signs - 24 hr 07/28/25 12:06 Temperature 97.2 F L Pulse Rate 90 Respiratory Rate 20 Blood Pressure 138/77 Pulse Oximetry 96 Oxygen Delivery Room Air Exam Const: General: cooperative and healthy appearing Resp: Effort & Inspection: normal respiratory effort and able to speak in complete sentences Auscultation: clear to auscultation bilaterally Cardio: Rate: regular rate Rhythm: regular rhythm GI: Inspection: normal to inspection GI Palp: No No hepatosplenomegaly present Auscultation: normal bowel sounds Rectal Exam: deferred Skin: General skin exam: normal color Psych: Appearance: grossly normal Mental Status: mental status grossly normal Assessment and Plan Assessment and plan (1) Positive colorectal cancer screening using Cologuard test: Code(s): R19.5 - Other fecal abnormalities Status: Acute Assessment and Plan: The patient is deemed a good candidate for the procedure. Consent signed. Will proceed. Prior Studies I have reviewed the following patient records and this information was taken into consideration when formulating the assessment and plan.: previous labs, previous ER visits, previous hospitalizations and previous clinic visits
[2025-07-28] MEDS: LACTATED RINGERS 1,000 ML 150 ML IV CONT (13:34)
[2025-07-28 13:36] VITALS: BP 109/66; PULSE 76; RESP 15; O2SAT 100
[2025-07-28 13:46] VITALS: BP 118/68; PULSE 71; RESP 15; O2SAT 98
[2025-07-28 13:56] VITALS: BP 109/71; PULSE 70; RESP 15; O2SAT 100
== END 2025-07-28 14:07 | disposition home or self-care (01) ==
PROVIDERS: PCP Internal Medicine; Referring Provider Internal Medicine; Visit Provider Internal Medicine Gastroenterology
PROC: 0DJD8ZZ Inspection of Lower Intestinal Tract, Via Natural or Artificial Opening Endoscopic (ICD-10-PCS; CPT 45378; principal; 2025-07-28 13:30)
DX: R19.5 Other fecal abnormalities (principal); K57.30 Diverticulosis of large intestine without perforation or abscess without bleeding; E66.9 Obesity, unspecified; Z68.41 Body mass index [BMI] 40.0-44.9, adult
CPT/HCPCS: 45378; J2003; J2704; J7120